=== PATIENT | male | born 1980 | race African-American/Black ===

== ENCOUNTER 2019-09-15 12:18 | Emergency (ER) | payer OTHER ==
[~2019-09-15] VITALS: Ht 180.3 cm; Wt 78.9 kg
[2019-09-15 12:38] VITALS: BP 112/64
[2019-09-15 13:15] VITALS: BP 113/65
== END 2019-09-15 13:31 | disposition home or self-care (01) ==
LOC: MED 12:18
DX: S41.112D Laceration without foreign body of left upper arm, subsequent encounter (principal); Z48.02 Encounter for removal of sutures
CPT/HCPCS: 99281

== ENCOUNTER 2019-11-09 11:59 | Emergency (ER) | payer OTHER ==
[~2019-11-09] VITALS: Ht 180.3 cm; Wt 77.1 kg
[2019-11-09 12:04] VITALS: BP 104/68
--- NOTE | 2019-11-09 12:19 | NUR ---
C/O LEFT ANTERIOR/POSTERIOR SHOULDER PAIN X 3 DAYS ; DENIES DIRECT INJURY BUT ADMITS HAS BEEN LIFTING HEAVY OBJECTS RECENTLY---
[2019-11-09] MEDS ORDERED: KETOROLAC 30 MG/ML VIAL IM ONE (12:25)
--- NOTE | 2019-11-09 12:34 | NUR ---
Patient discharged with v/s stable. Written and verbal after care instructions given and explained. Patient alert, oriented and verbalized understanding of instructions. Ambulatory with steady gait. All questions addressed prior to discharge. ID band removed. Patient advised to follow up with PMD. Rx of NAPROXEN & FLEXERIL given. Patient educated on indication of medication including possible reaction and side effects. Opportunity to ask questions provided and answered.
[2019-11-09 12:35] VITALS: BP 104/68
== END 2019-11-09 12:34 | disposition home or self-care (01) ==
LOC: MED 11:59
DX: S46.912A Strain of unspecified muscle, fascia and tendon at shoulder and upper arm level, left arm, initial encounter (principal); X58.XXXA Exposure to other specified factors, initial encounter; Y93.89 Activity, other specified; Y92.89 Other specified places as the place of occurrence of the external cause; Y99.8 Other external cause status
CPT/HCPCS: 96372; 99283; J1885

== ENCOUNTER 2019-11-17 11:21 | Emergency (ER) | payer OTHER ==
[~2019-11-17] VITALS: Ht 180.3 cm; Wt 79.4 kg
[2019-11-17 11:30] VITALS: BP 110/70
--- NOTE | 2019-11-17 11:35 | NUR ---
39/M BIB SELF C/O LEFT SHOULDER PAIN X 8 DAYS. SEE HERE SAME S/S 8 DAYS AGO. MED HX: DENIES. PATIENT STATES PAIN OF 7/10 AT THIS TIME.
--- NOTE | 2019-11-17 11:35 | NUR ---
PT AMB TO BED 5.
[2019-11-17] MEDS ORDERED: KETOROLAC 60 MG/2 ML VIAL IM ONE (12:05)
[2019-11-17 13:06] VITALS: BP 110/70
--- NOTE | 2019-11-17 13:06 | NUR ---
Patient discharged with v/s stable. Written and verbal after care instructions given and explained. Patient alert, oriented and verbalized understanding of instructions. Ambulatory with steady gait. All questions addressed prior to discharge. ID band removed. Patient advised to follow up with PMD. Rx of FLEXERIL given. Patient educated on indication of medication including possible reaction and side effects. Opportunity to ask questions provided and answered.
== END 2019-11-17 13:06 | disposition home or self-care (01) ==
LOC: MED 11:21
DX: M25.512 Pain in left shoulder (principal); R07.9 Chest pain, unspecified
CPT/HCPCS: 73030; 96372; 99283; J1885; Q0092

== ENCOUNTER 2021-11-17 06:24 | Emergency (ER) | payer OTHER ==
[~2021-11-17] VITALS: Ht 180.3 cm; Wt 79.4 kg
[2021-11-17 06:29] VITALS: BP 107/59
--- NOTE | 2021-11-17 06:34 | NUR ---
Patient ambulated to bed 5.
[2021-11-17] MEDS ORDERED: NACL 0.9% 1,000 ML IV ONE (06:50)
[2021-11-17] MEDS ORDERED: KETOROLAC 30 MG/ML VIAL IVP ONE (06:50)
--- NOTE | 2021-11-17 07:29 | NUR ---
Pt report given to DORINA CLANCY. Transfer of care at this time.
[2021-11-17 07:34] LABS: BASOPHILS % (AUTO) 0.1 % (0.0-2.0); EOSINOPHILS % (AUTO) 0.5 % (0.0-4.0); HEMATOCRIT 41.8 % (36-52); LYMPHOCYTES # (AUTO) 0.2 K/uL (2.0-11.5); LYMPHOCYTES % (AUTO) 3.6 % (20.5-51.1); MEAN CORPUSCULAR HEMOGLOBIN 27 pg (27-31); MEAN CORPUSCULAR HGB CONC 34 g/dL (33-37); MEAN CORPUSCULAR VOLUME 81.3 fL (80-94); MONOCYTES % (AUTO) 16.2 % (1.7-9.3); NEUTROPHILS % (AUTO) 79.6 % (42.2-75.2); PLATELET COUNT (AUTO) 188 K/uL (140-450); RED BLOOD CELL COUNT(AUTO) 5.14 MIL/uL (4.20-6.10); RED CELL DISTRIBUTION WIDTH 13.7 % (11.6-13.7); WHITE BLOOD COUNT (AUTO) 6.3 K/uL (4.8-10.8)
--- NOTE | 2021-11-17 07:42 | NUR ---
PT AMBULATED TO RESTROOM WITH STEADY GAIT.
--- NOTE | 2021-11-17 07:55 | NUR ---
SWABS HANDED TO [employer]
[2021-11-17 08:15] LABS: ALBUMIN 4.4 g/dL (3.4-5.0); ANION GAP 15.8 (8-16); CARBON DIOXIDE 22.9 mmol/L (21-32); CREATININE 1.3 mg/dL (0.6-1.3); POTASSIUM 3.7 mmol/L (3.5-5.1); TOTAL BILIRUBIN 0.3 mg/dL (0.0-1.0)
[2021-11-17 08:43] VITALS: BP 109/60
[2021-11-17 09:10] LABS: APPEARANCE,URINE CLEAR (CLEAR); BILIRUBIN,URINE NEGATIVE (NEGATIVE); BLOOD, URINE 1+ (NEGATIVE); COLOR,URINE YELLOW (YELLOW); LEUKOCYTE ESTERASE ,URINE NEGATIVE (NEGATIVE); NITRITE, URINE NEGATIVE (NEGATIVE); UGLUCOSE NEGATIVE (NEGATIVE)
[2021-11-17 09:43] LABS: TRICHOMONAS,URINE None Seen /HPF (None Seen); WBC,URINE 0 /HPF (0-5); YEAST,URINE None Seen /HPF (None Seen)
[2021-11-17 09:44] LABS: URIC ACID CRYSTALS,URINE 0-10 /HPF (None Seen)
[2021-11-17] MEDS ORDERED: IBUP-2213 PO (09:59)
[2021-11-17] MEDS ORDERED: METH-1681 PO (10:00)
--- NOTE | 2021-11-17 10:11 | NUR ---
Patient discharged with v/s stable. Written and verbal after care instructions ABOUT INFLUENZA AND COVID given and explained. Patient alert, oriented and verbalized understanding of instructions. Ambulatory with steady gait. All questions addressed prior to discharge. ID band removed. IV REMOVED. Patient advised to follow up with PMD. Rx of IVUPROFEN AND ROBAXIN given. Patient educated on indication of medication including possible reaction and side effects. Opportunity to ask questions provided and answered.
[2021-11-17] MEDS ORDERED: toradol PO (19:17)
[2021-11-17] MEDS ORDERED: NIRM1TAB PO (19:17)
== END 2021-11-17 10:11 | disposition home or self-care (01) ==
LOC: MED 06:24
DX: U07.1 COVID-19 (principal); R35.0 Frequency of micturition
CPT/HCPCS: 36415; 80053; 81001; 85025; 87426; 87804; 96361; 96374; 99283; J1885

== ENCOUNTER 2021-11-17 18:25 | Emergency (ER) | payer OTHER ==
[~2021-11-17] VITALS: Ht 180.3 cm; Wt 82.3 kg
[~2021-11-17 18:25] MED LIST: IBUP-2213 PO; METH-1681 PO
[2021-11-17 18:36] VITALS: BP 102/64
--- NOTE | 2021-11-17 19:06 | NUR ---
[facility] examining patient.
[2021-11-17] MEDS ORDERED: toradol PO (19:17)
[2021-11-17] MEDS ORDERED: NIRM1TAB PO (19:17)
[2021-11-17 19:32] VITALS: BP 102/64
--- NOTE | 2021-11-17 19:32 | NUR ---
Patient discharged with v/s stable. Written and verbal after care instructions given and explained for COVID-19. Patient alert, oriented and verbalized understanding of instructions. Ambulatory with steady gait. All questions addressed prior to discharge. ID band removed. Patient advised to follow up with PMD. Rx of Nirmatrelvir/Ritonavir and Toradol given. Patient educated on indication of medication including possible reaction and side effects. Opportunity to ask questions provided and answered.
== END 2021-11-17 19:32 | disposition home or self-care (01) ==
LOC: MED 18:25
DX: U07.1 COVID-19 (principal)
CPT/HCPCS: 99283

== ENCOUNTER 2022-08-23 13:50 | Emergency (ER) | payer BC, OTHER ==
[~2022-08-23] VITALS: Ht 182.9 cm; Wt 88.0 kg
[~2022-08-23 13:50] MED LIST changes: +NIRM1TAB PO; +toradol PO
[2022-08-23 14:18] VITALS: BP 113/67
[2022-08-23] MEDS ORDERED: IBUPROFEN 600 MG TAB PO ONE (14:35)
[2022-08-23] MEDS ORDERED: IBUP-2213 PO (15:19)
[2022-08-23] MEDS ORDERED: METH-1681 PO (15:20)
--- NOTE | 2022-08-23 15:27 | NUR ---
Patient discharged with v/s stable. Written and verbal after care instructions given and explained. Patient alert, oriented and verbalized understanding of instructions. Ambulatory with steady gait. All questions addressed prior to discharge. ID band removed. Patient advised to follow up with PMD. Rx of ROBAXIN, MOTRIN given. Patient educated on indication of medication including possible reaction and side effects. Opportunity to ask questions provided and answered.
== END 2022-08-23 15:26 | disposition home or self-care (01) ==
LOC: MED 13:50
DX: S16.1XXA Strain of muscle, fascia and tendon at neck level, initial encounter (principal); Z79.899 Other long term (current) drug therapy; X58.XXXA Exposure to other specified factors, initial encounter; Y93.89 Activity, other specified; Y92.89 Other specified places as the place of occurrence of the external cause; Y99.8 Other external cause status
CPT/HCPCS: 72040; 99283